=== PATIENT | female | born 1950 | race Caucasian/White ===

== ENCOUNTER 2020-11-21 12:42 | Outpatient (REF) | payer MEDICARE, SELFPAY ==
--- NOTE | ~2020-11-21 | US_ITS ---
EXAMINATION: PELVIC ULTRASOUND CLINICAL INFORMATION: Left lower quadrant pain COMPARISON: Previous pelvic ultrasound October 2009 TECHNIQUE: Transabdominal and transvaginal pelvic ultrasound was performed. Transvaginal exam was performed for better visualization of the uterus and ovaries. FINDINGS: The uterus is anteverted and measures 5.6 x 2.2 x 3.7 cm. There is a 9 x 5 x 10 mm hyperechoic area in the anterior upper uterine body questionable for a small fibroid. No other focal uterine lesion is seen. Endometrial thickness is normal measuring 0.3 cm. The left ovary is seen transabdominally only and is normal-appearing. The left ovary measures 1.6 x 2.2 x 1.4 cm. The right ovary is not seen. There is a small amount of fluid in the pelvis. US/US pelvic and transvaginal IMPRESSION: Question small anterior uterine body fibroid otherwise normal-appearing uterus. The left ovary is seen transabdominally only and is normal-appearing. The right ovary is not seen.
== END 2020-11-21 12:43 | disposition home or self-care (01) ==
LOC: HO.US 12:42
PROVIDERS: PCP Family Medicine; Visit Provider Internal Medicine
DX: R10.32 Left lower quadrant pain (principal)
CPT/HCPCS: 76830; 76856

== ENCOUNTER 2022-12-05 09:29 | Day surgery (SDC) | payer MEDICARE, SELFPAY ==
--- NOTE | 2022-12-03 12:17 | HO.ANESPROP2 ---
Documented by User: Cari Roach NP 12/03/22 12:17 HPI - Anesthesia Eval Consult details Narrative: 72yo F for Upper Endoscopy and Colonoscopy [facility] Past Medical History Medical History (Updated 12/03/22 @ 10:19 by Ana Fontenot RN) Barretts esophagus COPD (chronic obstructive pulmonary disease) Hyperlipidemia Hypothyroidism IBS (irritable bowel syndrome) Osteoporosis Surgical History Surgical History (Updated 12/03/22 @ 10:19 by Ana Fontenot RN) H/O colonoscopy H/O esophagogastroduodenoscopy Social History Social History Patient Tobacco Use Status: Never used Tobacco Use of substances other than those prescribed or required for medical reasons: No Advance Directives: No Advance Directives Information Provided: Yes Recently lost weight without trying: Yes How much weight loss: 2-13 pounds Meds Allergies Allergy/AdvReac Type Severity Reaction Status Date / Time Sulfa (Sulfonamide Allergy Headache Verified 12/05/22 09:52 Antibiotics) Home Medications Medication Instructions Recorded Confirmed Last Taken Type ezetimibe 10 mg tablet 10 mg PO DAILY 12/03/22 12/03/22 Unknown History levothyroxine 50 mcg tablet mcg PO 12/03/22 Unknown History Exam Exam Date and Time: December 03, 2022 121 Assessment and Plan Assessment Anesthesia Assessment: Chart Reviewed Documented by User: Nicole Ivory MD 12/05/22 09:54 [facility] Past Medical History Medical History (Updated 12/03/22 @ 10:19 by Ana Fontenot RN) Barretts esophagus COPD (chronic obstructive pulmonary disease) Hyperlipidemia Hypothyroidism IBS (irritable bowel syndrome) Osteoporosis Family History Family history of problems with anesthesia: No Surgical History Surgical History (Updated 12/03/22 @ 10:19 by Ana Fontenot RN) H/O colonoscopy H/O esophagogastroduodenoscopy History of Problems with Anesthesia: No Social History Social History Patient Tobacco Use Status: Never used Tobacco Use of substances other than those prescribed or required for medical reasons: No Advance Directives: No Advance Directives Information Provided: Yes Recently lost weight without trying: Yes How much weight loss: 2-13 pounds Meds Allergies Allergy/AdvReac Type Severity Reaction Status Date / Time Sulfa (Sulfonamide Allergy Headache Verified 12/05/22 09:52 Antibiotics) Home Medications Medication Instructions Recorded Confirmed Last Taken Type ezetimibe 10 mg tablet 10 mg PO DAILY 12/03/22 12/03/22 Unknown History levothyroxine 50 mcg tablet mcg PO 12/03/22 Unknown History Exam Airway Mallampati Class: II (muliple caps throughout) TM Dist: >3cm Neck ROM: Full Heart: rrr Lungs: cta Assessment and Plan Assessment Anesthesia Assessment: Anesthesia Plan Discussed Final Anesthetic Review Family History of Problems with Anesthesia: No History of Problems with Anesthesia: No NPO: Yes ASA Class: II Final Preanesthetic Review: No Changes in Pt Med Stat, Meds/Allgs Chart Reviewed and Consent Obtained/Reviewed Patient Risk: Intermediate Procedure Risk: Intermediate Anesthetic Plan Anesthetic Plan: MAC: Disposition: Standard PACU
[2022-12-05 09:41] VITALS: BMI 19.0
[2022-12-05 09:52] VITALS: BP 160/89; PULSE 89; RESP 16; TEMP 36.2; O2SAT 97
[2022-12-05 11:12] VITALS: BP 118/60; PULSE 75; RESP 16; TEMP 36.2; O2SAT 96
--- NOTE | 2022-12-05 11:14 | PM.OP ---
Brief Operative Note Date of Service: 12/05/22 Pre-op diagnosis: Abdominal discomfort, weight loss, screening Post-op diagnosis: other (Hiatal hernia, Diverticulosis) Procedure: EGD with biopsies, Colonoscopy to the cecum and TI with biopsies Surgeon: Jerry Mitchell Anesthesia: MAC Was an Silk Worker used for this Procedure?: No Estimated blood loss (mL): 2.0 Pathology: other (A. Descending duodenum B. EG Junction at 36cm C. Gastric antrum D. Ascending colon E. Descending colon) Condition: stable Disposition: PACU
[2022-12-05 11:27] VITALS: BP 141/50; PULSE 64; RESP 16; TEMP 36.2; O2SAT 96
--- NOTE | 2022-12-05 12:03 | OP_ITS ---
DATE OF SERVICE: 12/05/2022 SURGEON: Jerry Mitchell MD INDICATIONS: The patient presents for evaluation of abdominal discomfort, weight loss, and colorectal cancer screening. Full consent has been obtained from her for this, including risks of bleeding and perforation. PREOPERATIVE DIAGNOSIS: POSTOPERATIVE DIAGNOSIS: PROCEDURE PERFORMED: Esophagogastroduodenoscopy with biopsies, and colonoscopy to the cecum and terminal ileum with biopsies. ESTIMATED BLOOD LOSS: COMPLICATIONS: ANESTHESIA: Monitored anesthesia care. ASSISTANTS: SPECIMENS: PREOPERATIVE DIAGNOSES: Abdominal discomfort, weight loss, and colorectal cancer screening. POSTOPERATIVE DIAGNOSES: Abdominal discomfort, weight loss, and colorectal cancer screening, hiatal hernia, rule out celiac disease, rule out microscopic colitis, diverticulosis, and internal hemorrhoids. DESCRIPTION OF PROCEDURE: The patient was placed in the left lateral decubitus position. The Olympus video gastroscope was passed in the posterior oropharynx and upper esophagus under direct vision. The scope was passed slowly to the distal esophagus. The gastroesophageal junction appeared at 36 cm. There were small, less than 1 cm, areas of possible Barajas mucosa. There was no esophagitis nor any lesions. The scope entered the stomach. There was a small hiatal hernia. The scope was advanced to the pylorus, and the duodenum was cannulated to the descending portion. The duodenum including the bulb appeared normal without mass or ulceration. Biopsies were obtained from the 2nd and 3rd portions of duodenum. The scope was withdrawn back to the stomach. The gastric antrum and body appeared normal with good peristalsis. Biopsies were obtained from the antrum. The scope was retroflexed visualizing the proximal stomach carefully, which appeared normal, without any sign of mass or ulceration. The scope was straightened and withdrawn back to the esophagus. Biopsies were obtained at the EG junction at 36 cm. Proximal to this, the esophageal mucosa appeared normal. The scope was withdrawn from the patient. She was turned around for the colonoscopy. The digital rectal exam revealed no abnormalities. The Olympus video pediatric colonoscope was entered into the rectum and advanced easily to the cecum. Once in the cecum, I did identify normal-appearing cecal pouch with appendiceal orifice and a normal-appearing ileocecal valve. There was transillumination of light deep in the right lower quadrant. The terminal ileum was cannulated and appeared normal. The scope was withdrawn back in the colon. The entire cecum and ileocecal valve appeared normal. The scope was slowly withdrawn assessing all mucosal surfaces carefully. Preparation was excellent. I did not visualize any sign of polyps, colitis nor angiodysplasia. There was a mild amount of diverticulosis. Random biopsies were obtained in the ascending and descending colon to rule out microscopic colitis. In the rectum, scope was retroflexed visualizing internal hemorrhoids, but no other pathology. The rectal mucosa appeared normal. The scope was straightened and withdrawn from the patient. She tolerated both procedures well and was returned to the recovery area in stable condition. IMPRESSION: 1. Hiatal hernia, rule out Barajas's esophagus. 2. Rule out celiac disease. 3. Rule out microscopic colitis. 4. Diverticulosis. 5. Internal hemorrhoids. PLAN: The results of the biopsies will be checked. At this point, since I saw her in October, she does report that her weight has been stable. She is not having any significant GI complaints at this time. The results of the biopsies will be checked and if those are nonrevealing, she will see me on a p.r.n. basis. I do not think she will need any further screening colonoscopies given today's negative exam and her age. She was advised not to use any aspirin or NSAIDs for least 1 week. MD JOVI Byers/JUAN LUIS / [id number] MTDMary Alice
== END 2022-12-05 12:20 | disposition home or self-care (01) ==
PROVIDERS: PCP Family Medicine; Visit Provider Internal Medicine
PROC: (CPT 45380; principal; 2022-12-05 10:30)
DX: Z12.11 Encounter for screening for malignant neoplasm of colon (principal); K57.30 Diverticulosis of large intestine without perforation or abscess without bleeding; K64.8 Other hemorrhoids; K58.9 Irritable bowel syndrome, unspecified; R10.84 Generalized abdominal pain; R63.4 Abnormal weight loss; Z68.1 Body mass index [BMI] 19.9 or less, adult; K21.9 Gastro-esophageal reflux disease without esophagitis; K44.9 Diaphragmatic hernia without obstruction or gangrene; K22.70 Barrett's esophagus without dysplasia; J44.9 Chronic obstructive pulmonary disease, unspecified; E78.5 Hyperlipidemia, unspecified; E03.9 Hypothyroidism, unspecified; M81.0 Age-related osteoporosis without current pathological fracture; Z79.899 Other long term (current) drug therapy; Z88.2 Allergy status to sulfonamides
CPT/HCPCS: 45380; 43239; 88305; 88342